=== PATIENT | female | born 1975 | race African-American/Black ===

== ENCOUNTER 2018-08-20 22:20 | Emergency (ER) ==
[2018-08-20 22:32] VITALS: BP 184/120; TEMP 98.2; BMI 34.2
--- NOTE | 2018-08-20 22:52 | ED.PDOC ---
General ED Provider: Dr. SHANICE FORDE Chief Complaint: Hypertension Stated Complaint: I think that my blood pressure is high Time Seen by Physician: 22:50 Mode of Arrival: Wheelchair Information Source: Patient Exam Limitations: No limitations Primary Care Provider: MED SHULTZ Nursing and Triage Documentation Reviewed and Agree: Yes Does patient meet sepsis criteria?: No System Inflammatory Response Syndrome: Not Applicable Sepsis Protocol: For patient's 13 years and over: Temp is 96.8 and below OR 101 and greater Pulse >90 BPM Resp >20/minute Acutely Altered Mental Status Are patient's symptoms suggestive of a new infection, such as: -Pneumonia -Skin, Soft Tissue -Endocarditis -UTI -Bone, Joint Infection -Implantable Device -Acute Abdominal Infection -Wound Infection -Meningitis -Blood Stream Catheter Infection -Unknown Review of Systems - Review Of Systems Constitutional: Reports: No symptoms Eyes: Reports: No symptoms Ears, Nose, Mouth, Throat: Reports: No symptoms Respiratory: Reports: No symptoms Cardiac: Reports: No symptoms GI: Reports: No symptoms : Reports: No symptoms Musculoskeletal: Reports: No symptoms Skin: Reports: No symptoms Neurological: Reports: Anxiety, Headache Endocrine: Reports: No symptoms Hematologic/Lymphatic: Reports: No symptoms All Other Systems: Reviewed and Negative Past Medical History - Past Medical History Previously Healthy: Yes Endocrine: Reports: None Cardiovascular: Reports: Hypertension Respiratory: Reports: None Hematological: Reports: None Gastrointestinal: Reports: GERD Genitourinary: Reports: None Neuro/Psych: Reports: Migraine, Anxiety, Depression Musculoskeletal: Reports: None Cancer: Reports: None Last Menstrual Period: HAS HAD A HYSTERECTOMY - Surgical History General Surgical History: Reports: Hysterectomy, Appendectomy, Cholecystectomy - Family History Family History: Reports: Unknown - Social History Smoking Status: Former smoker, Vaping Hx Substance Use: No Alcohol Screening: Occasionally - Immunizations Tetanus Shot up to Date: Yes Physical Exam - Physical Exam Appearance: Ill-appearing, Obese Pain Distress: Mild Eyes: BLAYNE, EOMI, Conjunctiva clear ENT: Ears normal, Nose normal, Oropharynx normal Neck: Supple Respiratory: Airway patent, Breath sounds clear, Breath sounds equal, Respirations nonlabored Cardiovascular: RRR, Pulses normal, No rub, No murmur GI/: Soft, Nontender, No masses, Bowel sounds normal, No Organomegaly Musculoskeletal: Normal strength, ROM intact, No edema, No calf tenderness Skin: Warm, Dry, Normal color Neurological: Alert Psychiatric: Anxious Interpretation - EKG Interpretation Time of EKG #1: 22:51 Rate: Normal Rhythm: Sinus Ectopy: None [place]: NL ST Segment: Normal Interpretation: Prolonged qt 492, Non specific T wave abnormalities Re-Evaluation - Re-Evaluation Time of Re-Evaluation: 23:20 Status: Improved Vital Signs Stable: Yes (145/98) Appearance: NAD Critical Care Note - Critical Care Note Total Time (mins): 0 Course - Course Orders, Labs, Meds: Orders Category Date Time Status EKG-(ED ONLY) Stat CARDIO 08/20/18 23:04 Ordered Lorazepam [Ativan] MEDS 08/20/18 22:58 Discontinued 1 mg PO ONCE STA Medications Discontinued Medications Generic Name Dose Route Start Last Admin Trade Name Freq PRN Reason Stop Dose Admin Lorazepam 1 mg 08/20/18 22:58 08/20/18 23:04 Ativan PO 08/20/18 22:59 1 mg ONCE STA Administration Vital Signs: Temp Pulse Resp BP Pulse Ox 08/20/18 22:21 98.2 F 93 H 20 184/120 H 99 Departure - Departure Time of Disposition: 23:30 Disposition: HOME SELF-CARE Discharge Problem: Panic attack Instructions: Panic Attack (ED) Condition: Stable Pt referred to PMD for follow-up: Yes IPMP verified?: No Additional Instructions: continue home medications as prescribed Follow up with PCP in 3 days Prescriptions: Alprazolam [Xanax] 0.5 mg PO BID PRN #10 tablet PRN Reason: Anxiety Allergies/Adverse Reactions: Allergies cephalexin monohydrate [From Keflex] Allergy (Unverified 08/20/18 22:31) Hives clarithromycin [From Biaxin] Allergy (Unverified 04/03/16 10:36) Yeast infections AVALOX Adverse Reaction (Uncoded 08/20/18 22:31) Abdominal Pain Home Medications: Ambulatory Orders Alprazolam [Xanax] 0.5 mg PO DAILY PRN 04/03/16 Carbidopa/Levodopa [Sinemet 25-100 Mg Tablet] 2 each PO BEDTIME 04/03/16 Lisinopril/Hydrochlorothiazide [Lisinopril-Hctz 10-12.5 Mg Tab] 1 each PO DAILY 04/03/16 Zolpidem Tartrate [Ambien] 10 mg PO BEDTIME 04/03/16 Alprazolam [Xanax] 0.5 mg PO BID PRN #10 tablet 08/20/18 Esomeprazole Magnesium [Nexium] 40 mg PO DAILY 08/20/18 Disposition Discussed With: Patient, Family
[2018-08-20] MEDS ORDERED: ATIVAN PO STA (22:58)
== END 2018-08-20 23:30 | disposition home or self-care (01) ==
LOC: ED 22:20
DX: I10 Essential (primary) hypertension (principal); F41.9 Anxiety disorder, unspecified; R51 Headache; F41.0 Panic disorder [episodic paroxysmal anxiety]
CPT/HCPCS: 93005; 93010; 99283